=== PATIENT | male | born 1955 | race Hispanic/Latino ===

== ENCOUNTER 2017-06-22 17:16 | Emergency (ER) | payer BC ==
[2017-06-22 18:26] LABS: BUN/Creatinine Ratio 19; Blood Urea Nitrogen 15 mg/dL (9-20); Calcium 9.8 mg/dL (8.4-10.2); Hemolysis Index 4
[2017-06-22 18:30] LABS: Basophils # (Auto) 0.1 K/mm3 (0.0-0.1); Basophils % (Auto) 0.6 % (0.0-1.8); Eosinophils # (Auto) 0.1 K/mm3 (0.0-0.4); Eosinophils % (Auto) 1.1 % (0.0-4.3); Hematocrit 41.3 % (35.5-45.6); Lymphocytes # (Auto) 2.9 K/mm3 (1.2-5.4); Mean Corpuscular HGB Conc 34 % (32-34); Mean Corpuscular Hemoglobin 29 pg (28-32); Mean Corpuscular Volume 85 fl (84-94); Monocytes # (Auto) 0.7 K/mm3 (0.0-0.8); Monocytes % (Auto) 7.8 % (0.0-7.3); Platelet Count 324 K/mm3 (140-440); Red Blood Count 4.84 M/mm3 (3.65-5.03); Red Cell Distribution Width 14.1 % (13.2-15.2)
[2017-06-22] MEDS ORDERED: CLEOCIN 900 MG/50 mL 900 MG/50 ML BAG IV ONE (18:48)
[2017-06-22] MEDS ORDERED: TORADOL IV ONE (18:48)
--- NOTE | 2017-06-22 18:52 | Emergency Department Report ---
ED Eye Problem HPI - General Chief complaint: Eye Problems Stated complaint: CELLULITIS TO RT EYE Time Seen by Provider: 06/22/17 17:48 Source: patient Mode of arrival: Ambulatory Limitations: No Limitations - History of Present Illness Initial comments: 61 yo male who comes in today due to right eye cellulitis. He states that the problem started on Saturday. He was seen in the Urgent care side on today, and then sent over to the main ED. The cellulitis encircles the entire right eye. 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 MD chief complaint: eye pain -: days(s) (three ) Location: right eye Place: home If Injury: none Eye Symptoms: redness, pain, discharge, decreased vision, blurry vision Severity: moderate Severity scale (0 -10): 8 If Pain, Quality: sharp, throbbing Consistency: constant Context: other (cellulitis) Associated Symptoms: none Treatments Prior to Arrival: none - Related Data Home Medications Medication Instructions Recorded Confirmed Last Taken metFORMIN [Glucophage] 1,000 mg PO BID 03/19/14 11/28/14 11/27/14 Citalopram [celeXA] 20 mg PO DAILY 06/17/14 11/28/14 11/27/14 amLODIPine [Norvasc] 5 mg PO DAILY 06/17/14 11/28/14 11/27/14 Previous Rx's Medication Instructions Recorded Last Taken Type Insulin Glulisine [Apidra] 0 units SUB-Q ACHS units 12/02/14 Unknown Rx Sennosides/Docusate [Senokot S] 2 tab PO DAILY tablet 12/02/14 Unknown Rx Sodium Chloride 0.9% 1000 ml [NaCl 1,000 ml IV DIRECT bag 12/02/14 Unknown Rx 0.9 1000 ML] Thiamine [Vitamin B-1] 100 mg PO QDAY tablet 12/02/14 Unknown Rx amLODIPine [Norvasc] 5 mg PO DAILY tablet 12/02/14 Unknown Rx metFORMIN [Glucophage] 1,000 mg PO BIDDIAB tablet 12/02/14 Unknown Rx Allergies Allergy/AdvReac Type Severity Reaction Status Date / Time tape AdvReac Rash Uncoded 06/22/17 17:20 ED Review of Systems ROS: Stated complaint: CELLULITIS TO RT EYE Other details as noted in HPI Constitutional: denies: chills, fever Eyes: as per HPI (cellulitis-right eye ) ENT: denies: ear pain, throat pain Respiratory: denies: cough, shortness of breath, wheezing Cardiovascular: denies: chest pain, palpitations Endocrine: no symptoms reported Gastrointestinal: denies: abdominal pain, nausea, diarrhea Genitourinary: denies: urgency, dysuria Musculoskeletal: denies: back pain, joint swelling, arthralgia Skin: denies: rash, lesions Neurological: denies: headache, weakness, paresthesias Psychiatric: denies: anxiety, depression Hematological/Lymphatic: denies: easy bleeding, easy bruising ED Past Medical Hx - Past Medical History Hx Hypertension: Yes Hx Congestive Heart Failure: No Hx Diabetes: Yes Hx Arthritis: Yes Hx Kidney Stones: Yes (3 years ago) Hx Asthma: No Hx COPD: No Additional medical history: HYPERLIPIDEMIA , FATTY LIVER, early onset alzheimers - Surgical History Hx Cholecystectomy: Yes Hx Appendectomy: Yes Additional Surgical History: APPENDECTOMY , HERNIA REPAIR - Social History Smoking Status: Never Smoker Substance Use Type: Alcohol - Medications Home Medications: Home Medications Medication Instructions Recorded Confirmed Last Taken Type metFORMIN [Glucophage] 1,000 mg PO BID 03/19/14 11/28/14 11/27/14 History Citalopram [celeXA] 20 mg PO DAILY 06/17/14 11/28/14 11/27/14 History amLODIPine [Norvasc] 5 mg PO DAILY 06/17/14 11/28/14 11/27/14 History Insulin Glulisine [Apidra] 0 units SUB-Q ACHS units 12/02/14 Unknown Rx Sennosides/Docusate [Senokot S] 2 tab PO DAILY tablet 12/02/14 Unknown Rx Sodium Chloride 0.9% 1000 ml [NaCl 1,000 ml IV DIRECT bag 12/02/14 Unknown Rx 0.9 1000 ML] Thiamine [Vitamin B-1] 100 mg PO QDAY tablet 12/02/14 Unknown Rx amLODIPine [Norvasc] 5 mg PO DAILY tablet 12/02/14 Unknown Rx metFORMIN [Glucophage] 1,000 mg PO BIDDIAB tablet 12/02/14 Unknown Rx ED Physical Exam - General Limitations: No Limitations General appearance: alert, in no apparent distress - Head Head exam: Present: atraumatic, normocephalic - Eye Eye exam: Present: periorbital swelling (right eye ), periorbital tenderness ( right eye ) Pupils: Present: normal accommodation - ENT ENT exam: Present: normal exam - Neck Neck exam: Present: normal inspection - Respiratory Respiratory exam: Present: normal lung sounds bilaterally. Absent: respiratory distress - Cardiovascular Cardiovascular Exam: Present: regular rate - Extremities Exam Extremities exam: Present: normal inspection - Back Exam Back exam: Present: normal inspection - Neurological Exam Neurological exam: Present: alert, oriented X3 - Psychiatric Psychiatric exam: Present: normal affect, normal mood - Skin Skin exam: Present: warm, dry, intact, normal color. Absent: rash ED Course Vital Signs 06/22/17 06/22/17 06/22/17 17:20 17:56 19:00 Temperature 97.7 F Pulse Rate 82 79 Respiratory 16 18 18 Rate Blood Pressure 125/88 Blood Pressure 131/90 [Left] O2 Sat by Pulse 99 100 Oximetry - Reevaluation(s) Reevaluation #1: 06/22/17 21:[address] Thomson ([facility]) and he agreed to accept the patient. Dr. Perez-Opthalmology to see the patient in the ED. We appreciate their assistance. ED Medical Decision Making - Lab Data Result diagrams: 06/22/17 17:55 06/22/17 17:55 - Radiology Data Radiology results: report reviewed (CT facial-revealed right periorbital preseptal soft tissue inflammation extending into the nasal bridge which reveals an abscess. ) - Medical Decision Making Right orbital cellulitis Right preorbital cellulitis Right nasal bridge abscess - Differential Diagnosis right orbital cellulitis, right preorbital cellulitis, right nasal abscess Critical care attestation.: If time is entered above; I have spent that time in minutes in the direct care of this critically ill patient, excluding procedure time. ED Disposition Clinical Impression: Orbital cellulitis, right, Periorbital cellulitis, Abscess of external nose Disposition: [id number] ANOTHER TYPE HLTHCARE Is pt being admited?: No Does the pt Need Aspirin: No Condition: Stable Instructions: Orbital Cellulitis (ED) Additional Instructions: Patient to be transferred to [facility] care of Dr. Paris-JETHRO and Dr. Perez-Ophthalmology. Referrals: RHETT MARTINI MD [Primary Care Provider] - 3-5 Days Time of Disposition: 21:53
--- NOTE | 2017-06-22 20:39 | Cat Scan Report ---
FINAL REPORT PROCEDURE: CT FACIAL BONES W CON TECHNIQUE: Computerized tomography of the facial bones and soft tissues with axial and coronal sections was performed from the cranial aspect of the frontal sinuses to the caudal portion of the mandible following the IV injection of iodinated nonionic contrast. HISTORY: orbital cellulitis COMPARISON: No prior studies are available for comparison. FINDINGS: Moderate degree soft tissue swelling is noted in the right preseptal periorbital and the nasal bridge regions with evidence of an irregular hypodense lesion measuring 1.9 x 0.7 x 0.7 centimeters. Are brittle contents including eye balls, extraocular muscles and the retrobulbar structures are within normal limits. Mucosal thickening is noted involving bilateral ethmoid and bilateral frontal sinuses. There is no bony erosion or destruction. An acute fracture is not identified. There is no significant deviation of the nasal septum. Left temporomandibular joint demonstrates anterior subluxation with dysplasia of the temporal and mandibular articular surfaces with narrowing and osteophyte formation. Vascular structures are within normal limits. Pharyngeal and laryngeal tear structures are unremarkable. There is partial opacification of left mastoid air cells. And mandibular condyle IMPRESSION: Findings are consistent with right periorbital preseptal soft tissue inflammation extending into the nasal bridge region with evidence of an irregular fluid collection suspicious for an abscess measuring 1.9 x 0.7 x 0.7 centimeters. Chronic bilateral ethmoid and frontal sinusitis. Left mastoiditis. 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
[2017-06-22 23:29] VITALS: BP 120/74
== END 2017-06-22 23:45 | disposition other institution (70) ==
LOC: ED 17:16
DX: L03.213 Periorbital cellulitis (principal); H05.011 Cellulitis of right orbit; J34.0 Abscess, furuncle and carbuncle of nose; I10 Essential (primary) hypertension; E11.9 Type 2 diabetes mellitus without complications; M19.90 Unspecified osteoarthritis, unspecified site; Z91.048 Other nonmedicinal substance allergy status; Z79.4 Long term (current) use of insulin
CPT/HCPCS: 36415; 70487; 80048; 85025; 85652; 86140; 87040; 96365; 96366; 96375; 99285; J1885; J2930; Q9967

== ENCOUNTER 2018-09-26 11:06 | Outpatient (CLI) | payer BC, MEDICARE ==
[2018-09-26 11:43] LABS: Basophils # (Auto) 0.1 K/mm3 (0.0-0.1); Eosinophils # (Auto) 0.2 K/mm3 (0.0-0.4); Eosinophils % (Auto) 2.4 % (0.0-4.3); Hematocrit 41.5 % (35.5-45.6); Hemoglobin 14.3 gm/dl (11.8-15.2); Lymphocytes # (Auto) 2.8 K/mm3 (1.2-5.4); Lymphocytes % (Auto) 36.1 % (13.4-35.0); Mean Corpuscular HGB Conc 34 % (32-34); Mean Corpuscular Volume 88 fl (84-94); Monocytes # (Auto) 0.5 K/mm3 (0.0-0.8); Monocytes % (Auto) 6.2 % (0.0-7.3); Platelet Count 294 K/mm3 (140-440); Red Blood Count 4.73 M/mm3 (3.65-5.03); Red Cell Distribution Width 13.8 % (13.2-15.2)
[2018-09-26 12:08] LABS: Alanine Aminotransferase 10 units/L (7-56); Albumin 4.5 g/dL (3.9-5); BUN/Creatinine Ratio 17; Blood Urea Nitrogen 17 mg/dL (9-20); Calcium 9.4 mg/dL (8.4-10.2); Chol/HDL Ratio 2.12 %; HDL Cholesterol 50 mg/dL (40-59); Hemolysis Index 3; LDL Cholesterol,Direct 51 mg/dL (50-130)
[2018-09-26 12:23] LABS: Creatinine,Urine 69.5 mg/dL (0.1-20.0)
[2018-09-26 12:30] LABS: Microalbumin/Creatinine Ratio 17.2 ug/mg
== END 2018-09-26 11:07 | disposition home or self-care (01) ==
LOC: LAB 11:06
PROVIDERS: ATTEND Internal Medicine
DX: Z12.5 Encounter for screening for malignant neoplasm of prostate (principal); I12.9 Hypertensive chronic kidney disease with stage 1 through stage 4 chronic kidney disease, or unspecified chronic kidney disease; E11.22 Type 2 diabetes mellitus with diabetic chronic kidney disease; N18.2 Chronic kidney disease, stage 2 (mild); E78.2 Mixed hyperlipidemia
CPT/HCPCS: 36415; 80053; 80061; 82043; 84153; 85025

== ENCOUNTER 2018-11-19 09:34 | Outpatient (CLI) | payer BC, MEDICARE | END 2018-11-19 09:35 | disposition home or self-care (01) | LOC: ECHO 09:34 | PROVIDERS: ATTEND Internal Medicine | DX: I08.0 Rheumatic disorders of both mitral and aortic valves (principal); E11.9 Type 2 diabetes mellitus without complications; I10 Essential (primary) hypertension | CPT/HCPCS: 93306 ==

== ENCOUNTER 2018-11-21 08:53 | Day surgery (SDC) | payer BC, MEDICARE ==
[2018-11-21] MEDS ORDERED: ECOTRIN PO ONE ×2 (09:09→09:13)
[2018-11-21] MEDS ORDERED: NACL 0.9% 500 ML 500 ML ONE (09:13)
[2018-11-21 09:40] LABS: Basophils # (Auto) 0.1 K/mm3 (0.0-0.1); Eosinophils # (Auto) 0.2 K/mm3 (0.0-0.4); Eosinophils % (Auto) 3.1 % (0.0-4.3); Hematocrit 37.3 % (35.5-45.6); Hemoglobin 13.1 gm/dl (11.8-15.2); Lymphocytes # (Auto) 1.5 K/mm3 (1.2-5.4); Lymphocytes % (Auto) 25.5 % (13.4-35.0); Mean Corpuscular HGB Conc 35 % (32-34); Mean Corpuscular Volume 88 fl (84-94); Monocytes # (Auto) 0.5 K/mm3 (0.0-0.8); Monocytes % (Auto) 8.1 % (0.0-7.3); Platelet Count 272 K/mm3 (140-440); Red Blood Count 4.22 M/mm3 (3.65-5.03); Red Cell Distribution Width 13.9 % (13.2-15.2)
[2018-11-21 09:57] LABS: INR 1.01 (0.87-1.13)
[2018-11-21 09:58] LABS: Partial Thromboplastin Time 23.7 Sec. (24.2-36.6)
[2018-11-21] MEDS ORDERED: NACL 0.9% 500 ML 500 ML IV SCH (10:00)
[2018-11-21 10:03] LABS: BUN/Creatinine Ratio 22; Blood Urea Nitrogen 22 mg/dL (9-20); Hemolysis Index 78
[2018-11-21] MEDS ORDERED: CALAN ONE (11:09)
[2018-11-21] MEDS ORDERED: NITROGLYCERIN SYRINGE 3 ML ONE ×2 (11:09→11:39)
[2018-11-21] MEDS ORDERED: HEPARIN/NS 5000 UNIT/500ML(CATH LAB) 1,000 ML IR ONE (11:09)
[2018-11-21] MEDS ORDERED: XYLOCAINE 2% INFILTRATI ONE (11:09)
[2018-11-21] MEDS ORDERED: HEPARIN 10,000 UNITS/10 ML ONE (11:09)
[2018-11-21] MEDS ORDERED: SUBLIMAZE ONE (11:10)
[2018-11-21] MEDS ORDERED: VERSED ONE (11:10)
--- NOTE | 2018-11-21 13:22 | Cardiac Catherization Report ---
CARDIAC CATHETERIZATION REFERRING PHYSICIAN: Akil Newsome MD INDICATION FOR PROCEDURE: The patient is an exceedingly pleasant 62-year-old gentleman with early-onset Alzheimer's, diabetes, hypertension, mixed hyperlipidemia. His primary care physician is Dr. Amaya. 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 He had an echocardiogram here over this week which revealed severe . He was seen in the office yesterday. At this point, risks, benefits, and alternatives discussed at length prior to obtaining informed consent. PROCEDURE IN DETAIL: The patient was brought to catheterization lab in a postabsorptive state and prepped and draped in sterile fashion. Grover's test in the right hand was normal. A 2 mL of 2% lidocaine anesthetized the right wrist. A standard 6-Pashto hydrophilic sheath used to cannulate the right radial artery via modified Seldinger technique. All exchanges were performed to exchange a J-tip guidewire. JL3.5 catheter was used to engage the left main. No dampening or ventricularization. Cineangiography was performed in multiple projections. JR4 catheter was used to cross the aortic valve. Under fluoroscopic guidance, left ventriculography performed in 30 SEBASTIAN and 30 OCCITAN projections via hand injections, catheter flushed. Manual pullback performed with continuous pressure monitoring. Catheter used to engage the right coronary. No dampening or ventricularization. Cineangiography performed in all projections. I directly supervised the administration of moderate sedation with Versed and fentanyl from 11:38 to 12:05 p.m. FINDINGS: The patient remained in normal sinus rhythm throughout the procedure. No dysrhythmias. Aortic pressure is 100/60, LV pressure is approximately 160, LVEDP of 15 mmHg. Left ventriculography reveals normal systolic performance with estimated ejection fraction of 55-60%. There is tamqbrsm-ks-veblow aortic stenosis identified. Bqgx-qm-rqgc gradient is approximately 60 mmHg. CORONARY ANATOMY: This is a right dominant system. Left main is a large vessel, no significant disease, bifurcates in the left anterior descending and left circumflex. Left circumflex is a moderate sized vessel, chronic total occlusion in the mid segment with left to left and right to left collaterals. There is also a 90% proximal OM1 stenosis. LAD has a long 90% stenosis from proximal to mid, approximately 30-40 mm in length. LAD wraps around the apex. Diagonal branch with a 90% stenosis proximally, which is very eccentric and seen best in the SEBASTIAN caudal projection. Right coronary. The proximal and mid segment with scattered luminal irregularities, but no obstructive disease. Small vessel. There is distal disease identified, 90%, very distal right PDA. Again, right to left collaterals were identified. CONCLUSIONS: 1. Severe multivessel coronary artery disease. A long 90% proximal and mid LAD stenosis. 2. Eccentric 90% proximal first diagonal stenosis. 3. A 90% OM1 stenosis. 4. Chronic total occlusion of mid circumflex with left to left and right to left collaterals. 5. A 90% distal right PDA stenosis. 6. Uarulttt-ww-fbcrhy aortic stenosis with a zmkf-ob-halz gradient of approximately 55-60 mmHg. 7. Normal left ventricular systolic performance. 8. Normal LVEDP. I had a long discussion with the patient's , given his early-onset dementia. We discussed all the options includin. Aortic valve replacement plus coronary artery bypass surgery. 2. Staged PCI, follow moderate aortic stenosis and eventually possibly TAVR. 3. Medical therapy alone. 4. PCI alone. Given his early-onset dementia issue, Hansa will weigh all the choices and make a decision. She will continue aspirin, statin therapy. The right radial side looks good. Standard right radial care. No immediate complications identified. JOB# [id number] SBM/NTS
--- NOTE | 2018-11-21 13:37 | Short Stay Summary ---
Short Stay Documentation Date of service: 11/21/18 - History H&P: obtained from office - Allergies and Medications Current Medications: Allergies tape Adverse Reaction (Uncoded 06/22/17 17:20) Rash Home Medications Medication Instructions Recorded Confirmed Last Taken Type metFORMIN [Glucophage] 1,000 mg PO BID 03/19/14 11/21/18 11/20/18 History 1000mg Citalopram [celeXA] 20 mg PO DAILY 06/17/14 11/21/18 11/20/18 History 20mg Thiamine [Vitamin B-1] 100 mg PO QDAY tablet 12/02/14 11/21/18 11/20/18 Rx 100mg amLODIPine [Norvasc] 5 mg PO DAILY tablet 12/02/14 11/21/18 11/20/18 Rx 5mg AtorvaSTATin [Lipitor] 10 mg PO QHS 11/21/18 11/21/18 11/20/18 History 10mg Donepezil [Aricept] 10 mg PO DAILY 11/21/18 11/21/18 11/20/18 History 10mg Memantine [Namenda] 10 mg PO BID 11/21/18 11/21/18 11/20/18 History 10mg Pantoprazole [Protonix TAB] 40 mg PO DAILY 11/21/18 11/21/18 11/20/18 History 40mg Active Medications Sodium Chloride (Nacl 0.9% 500 Ml) 500 mls @ 50 mls/hr IV DIRECT FARIDEH Stop: 11/21/18 19:59 Last Admin: 11/21/18 09:37 Dose: 50 mls/hr Documented by: - Brief post op/procedure progress note Date of procedure: 11/21/18 Pre-op diagnosis: aortic stenosis Post-op diagnosis: other ( and CAD) Procedure: [facility] - see dictated cath report Anesthesia: local Estimated blood loss: none Condition: stable - Disposition Condition at discharge: Stable Disposition: DC-01 TO HOME OR SELFCARE - Discharge Diagnoses (1) Aortic stenosis Status: Chronic (2) CAD (coronary artery disease) Status: Chronic (3) HTN (hypertension) Status: Chronic (4) Type II diabetes mellitus Status: Chronic Comment: stable on current regimen with SSI coverage (5) Alzheimer's dementia Status: Chronic Short Stay Discharge Plan Activity: other (avoid physical exertion) Diet: low fat, low cholesterol, low salt, diabetic Wound: open to air, keep clean and dry, per your surgeon's advice Follow up with: ALEE QUINTERO MD [Primary Care Provider] - 7 Days GARCIA ABDI MD [Staff Physician] - 7 Days
[2018-11-21 14:01] VITALS: BP 113/72
== END 2018-11-21 14:30 | disposition home or self-care (01) ==
LOC: CATHLABREC 08:53
PROVIDERS: ATTEND Internal Medicine
DX: I25.10 Atherosclerotic heart disease of native coronary artery without angina pectoris (principal); I35.0 Nonrheumatic aortic (valve) stenosis; I10 Essential (primary) hypertension; F32.9 Major depressive disorder, single episode, unspecified; G30.9 Alzheimer's disease, unspecified; E11.51 Type 2 diabetes mellitus with diabetic peripheral angiopathy without gangrene; E78.00 Pure hypercholesterolemia, unspecified; F10.239 Alcohol dependence with withdrawal, unspecified; M19.90 Unspecified osteoarthritis, unspecified site; Z79.82 Long term (current) use of aspirin; Z79.899 Other long term (current) drug therapy; Z79.84 Long term (current) use of oral hypoglycemic drugs; Z85.89 Personal history of malignant neoplasm of other organs and systems; Z90.49 Acquired absence of other specified parts of digestive tract; Z87.442 Personal history of urinary calculi; Z98.890 Other specified postprocedural states; Z80.1 Family history of malignant neoplasm of trachea, bronchus and lung; Z79.01 Long term (current) use of anticoagulants; Z83.3 Family history of diabetes mellitus; Z80.8 Family history of malignant neoplasm of other organs or systems; Z82.49 Family history of ischemic heart disease and other diseases of the circulatory system; Z88.8 Allergy status to other drugs, medicaments and biological substances
CPT/HCPCS: 36415; 80048; 85025; 85610; 85730; 93005; 93010; 93458; 99156; 99157; C1894; J1644; J2250; J3010; J7040; Q9967

== ENCOUNTER 2019-06-30 12:38 | Outpatient (CLI) | payer BC, MEDICARE ==
[2019-06-30 13:30] LABS: Chol/HDL Ratio 3.84 %
== END 2019-06-30 12:39 | disposition home or self-care (01) ==
LOC: LAB 12:38
PROVIDERS: ATTEND Internal Medicine
DX: E11.65 Type 2 diabetes mellitus with hyperglycemia (principal); E78.5 Hyperlipidemia, unspecified
CPT/HCPCS: 36415; 80061; 83036

== ENCOUNTER 2019-10-08 11:27 | Outpatient (CLI) | payer BC, MEDICARE ==
[2019-10-08 12:03] LABS: Basophils # (Auto) 0.1 K/mm3 (0.0-0.1); Basophils % (Auto) 0.8 % (0.0-1.8); Eosinophils % (Auto) 0.6 % (0.0-4.3); Hematocrit 46.3 % (35.5-45.6); Hemoglobin 15.6 gm/dl (11.8-15.2); Lymphocytes # (Auto) 1.4 K/mm3 (1.2-5.4); Lymphocytes % (Auto) 19.6 % (13.4-35.0); Mean Corpuscular HGB Conc 34 % (32-34); Mean Corpuscular Volume 89 fl (84-94); Monocytes # (Auto) 0.5 K/mm3 (0.0-0.8); Monocytes % (Auto) 7.2 % (0.0-7.3); Platelet Count 336 K/mm3 (140-440); Red Blood Count 5.22 M/mm3 (3.65-5.03); Red Cell Distribution Width 13.5 % (13.2-15.2)
[2019-10-08 12:18] LABS: Bilirubin,Urine NEG (Negative); Blood,Urine NEG (Negative); Color,Urine Yellow (Yellow); Mucus,Urine 1+ /HPF; Protein,Urine <15 mg/dL mg/dL (Negative); Urobilinogen,Urine < 2.0 mg/dL (<2.0)
[2019-10-08 12:19] LABS: RBC,Urine < 1.0 /HPF (0.0-6.0)
[2019-10-08 12:46] LABS: Alanine Aminotransferase 14 units/L (7-56); Albumin 4.4 g/dL (3.9-5); BUN/Creatinine Ratio 18; Blood Urea Nitrogen 21 mg/dL (9-20); Calcium 10.3 mg/dL (8.4-10.2); Hemolysis Index 5
[2019-10-08 17:46] LABS: Chol/HDL Ratio 3.54 %; HDL Cholesterol 50 mg/dL (40-59); LDL Cholesterol,Direct 111 mg/dL (50-130)
== END 2019-10-08 11:28 | disposition home or self-care (01) ==
LOC: LAB 11:27
PROVIDERS: ATTEND Internal Medicine
DX: Z00.00 Encounter for general adult medical examination without abnormal findings (principal); Z13.29 Encounter for screening for other suspected endocrine disorder; Z13.21 Encounter for screening for nutritional disorder; E11.9 Type 2 diabetes mellitus without complications; E78.5 Hyperlipidemia, unspecified
CPT/HCPCS: 36415; 80053; 80061; 81001; 82306; 82607; 83036; 84153; 84443; 85025